=== PATIENT | male | born 1955 | race Caucasian/White ===

== ENCOUNTER 2017-01-13 12:54 | Emergency (ER) | payer BC ==
[2017-01-13] MEDS ORDERED: Sodium Chloride 0.9% 10 ML Syringe FLUSH PRN ×2 (15:13→16:03)
[2017-01-13] MEDS ORDERED: Sodium Chloride 0.9% 1,000 ML IV SCH (15:15)
--- NOTE | 2017-01-13 15:23 | EDM.PDOC ---
ED HPI GENERAL MEDICAL PROBLEM - General Chief Complaint: General Stated Complaint: LOW HEMOGLOBIN Time Seen by Provider: 01/13/17 15:23 Source of Information: Reports: Patient, Family History Limitations: Reports: No limitations - History of Present Illness INITIAL COMMENTS - FREE TEXT/NARRATIVE: PT WENT TO THE CLINIC TODAY BECAUSE HE WAS HAVING ABDOMANAL PAIN hE WAS FOUND TO HAVE A HG OF 6.8. hE HAS NOT HAD BLOODY STOOLS. Onset: gradual Duration: Hour(s): Location: Reports: abdomen Severity: moderate - Related Data Allergies Allergy/AdvReac Type Severity Reaction Status Date / Time No Known Allergies Allergy Verified 10/12/15 08:54 Home Meds: Home Meds Warfarin Sodium [Jantoven] 3.75 mg PO DAILY 10/11/15 [History] Calcium Polycarbophil [Fibercon] 1,250 mg PO DAILY 01/13/17 [History] Diphenoxylate HCl/Atropine [Diphenoxylate-Atrop 2.5-0.025] 1 tab PO TIDAC [History] Loperamide [Imodium] 2 mg PO BID PRN 01/13/17 [History] Magnesium Oxide 400 mg PO DAILY 01/13/17 [History] Pantoprazole [Protonix] 40 mg PO DAILY 01/13/17 [History] Phosphorus #1 [Neutra-Phos] 500 mg PO BID 01/13/17 [History] Sodium Bicarbonate 650 mg PO TID 01/13/17 [History] Tadalafil [Cialis] 5 mg PO DAILY 01/13/17 [History] Past Medical History HEENT History: Reports: Cataract Cardiovascular History: Reports: Blood clots/VTE/DVT Gastrointestinal History: Reports: Hemorrhoids, Other (see below) Other Gastrointestinal History: incisional hernia Musculoskeletal History: Reports: Arthritis, Back pain, chronic Endocrine/Metabolic History: Reports: Obesity/BMI 30+ Hematologic History: Reports: Anticoagulation therapy - Infectious Disease History Infectious Disease History: Reports: Chicken pox - Past Surgical History HEENT Surgical History: Reports: Cataract surgery GI Surgical History: Reports: Colonoscopy, Other (see below) Other GI Surgeries/Procedures: 18" of small bowel removed due to blood clot Neurological Surgical History: Reports: Other (see below) Other Neurological Surgeries/Procedures: 3 ruptured disc repair Musculoskeletal Surgical History: Reports: Shoulder surgery, Other (see below) Other Musculoskeletal Surgeries/Procedures:: rotator cuff repair Social & Family History - Family History Oncologic: Reports: Liver, Pancreatic, Prostate, Other (see below) Other Oncologic Family History: stomach - Tobacco Use Smoking Status *Q: Never Smoker Years of Tobacco use: 15 Packs/Tins Daily: 0 Used Tobacco, but Quit: Yes Month Tobacco Last Used: 0 Second Hand Smoke Exposure: No - Caffeine Use Caffeine Use: Reports: Coffee - Alcohol Use Days Per Week of Alcohol Use: 0 - Recreational Drug Use Recreational Drug Use: No ED ROS GENERAL - Review of Systems Review Of Systems: See Below Constitutional: Reports: no symptoms HEENT: Reports: No symptoms Respiratory: Reports: No Symptoms Cardiovascular: Reports: No symptoms Endocrine: Reports: no symptoms GI/Abdominal: Reports: Abdominal pain, Other ( HG OF 6.2. ) : Reports: no symptoms Musculoskeletal: Reports: no symptoms Skin: Reports: no symptoms Neurological: Reports: No Symptoms Psychiatric: Reports: No symptoms ED EXAM, GENERAL - Physical Exam Exam: See Below Free Text/Narrative:: PT ARRIVED WITH A HG OF 6.8. hE HAD HIS BLOOD CHECKED ABOUT 1 MONTH AGO AND IT WAS GOOD, Exam Limited By: No limitations General Appearance: alert, anxious Ears: normal TMs Nose: normal inspection Throat/Mouth: Normal inspection Head: atraumatic Neck: normal inspection Respiratory/Chest: no respiratory distress Cardiovascular: regular rate, rhythm GI/Abdominal: soft, non tender, other ( DIFFUSE TENDERNESS BUT NO GUARDING. ) (Male) Exam: Deferred Rectal (Males) Exam: Deferred Back Exam: normal inspection Extremities: normal inspection Neurological: alert, oriented, normal cognition Psychiatric: anxious Course - Vital Signs Last Recorded V/S: Last Vital Signs Temp 35.9 C 01/13/17 18:07 Pulse 57 L 01/13/17 18:07 Resp 16 01/13/17 18:07 BP 129/63 01/13/17 18:07 Pulse Ox 96 01/13/17 15:07 - Orders/Labs/Meds Orders: Active Orders 24 hr Category Date Time Status Abdomen Pelvis w Cont [CT] Stat Exams 01/13/17 15:58 Taken RED BLOOD CELLS LP [BBK] Stat Lab 01/13/17 14:40 Results TYPE AND SCREEN [BBK] Stat Lab 01/13/17 14:40 Results Iopamidol [Isovue-300 (61%)] Med 01/13/17 16:15 Active 150 ml IV . DIRECTED Sodium Chloride 0.9% [Normal Saline] 1,000 ml Med 01/13/17 15:15 Active IV ASDIRECTED Sodium Chloride 0.9% [Saline Flush] Med 01/13/17 15:13 Active 10 ml FLUSH ASDIRECTED PRN Sodium Chloride 0.9% [Saline Flush] Med 01/13/17 16:03 Active 10 ml FLUSH ONETIME PRN Saline Lock Insert [OM.PC] Routine Oth 01/13/17 15:13 Ordered Medication Orders Sodium Chloride (Normal Saline) 1,000 mls @ 200 mls/hr IV ASDIRECTED SHAYAN Last Admin: 01/13/17 16:55 Dose: 200 mls/hr Iopamidol (Isovue-300 (61%)) 150 ml IV . DIRECTED [facility] Last Admin: 01/13/17 16:38 Dose: 142 ml Sodium Chloride (Saline Flush) 10 ml FLUSH ASDIRECTED PRN PRN Reason: Keep Vein Open Last Admin: 01/13/17 16:55 Dose: 10 ml Sodium Chloride (Saline Flush) 10 ml FLUSH ONETIME PRN PRN Reason: PER RADIOLOGY PROTOCOL Last Admin: 01/13/17 16:37 Dose: 10 ml Labs: Laboratory Tests 01/13/17 01/13/17 01/13/17 Range/Units 14:32 14:33 14:40 WBC 5.9 (4.5-11.0) K/uL RBC 3.28 L (4.30-5.90) M/uL Hgb 6.2 L* D (12.0-15.0) g/dL Hct 22.4 L (40.0-54.0) % MCV 68 L (80-98) fL MCH 19 L (27-31) pg MCHC 28 L (32-36) % Plt Count 285 (150-400) K/uL Neut % (Auto) 62 (36-66) % Lymph % (Auto) 21 L (24-44) % [place] % (Auto) 14 H (2-6) % Eos % (Auto) 2 (2-4) % Baso % (Auto) 1 (0-1) % PT (9.5-12.0) sec INR (0.80-1.20) Sodium 144 (140-148) mmol/L Potassium 4.3 (3.6-5.2) mmol/L Chloride 109 H (100-108) mmol/L Carbon Dioxide 27 (21-32) mmol/L Anion Gap 12.3 (5.0-14.0) mmol/L BUN 25 H D (7-18) mg/dL Creatinine 1.2 (0.8-1.3) mg/dL Est Cr Clr Drug Dosing 63.01 mL/min Estimated GFR (MDRD) > 60 (>60) Glucose 82 (74-106) mg/dL Calcium 8.0 L (8.5-10.1) mg/dL Total Bilirubin 0.8 (0.2-1.0) mg/dL AST 24 (15-37) U/L ALT 32 (12-78) U/L Alkaline Phosphatase 64 (46-116) U/L Total Protein 6.9 (6.4-8.2) g/dL Albumin 3.2 L (3.4-5.0) g/dL Globulin 3.7 H (2.3-3.5) g/dL Albumin/Globulin Ratio 0.9 L (1.2-2.2) Urine Color Urine Appearance Urine pH (4.5-8.0) Ur Specific [place] (1.008-1.030) Urine Protein (NEGATIVE) mg/dL Urine Glucose (UA) (NEGATIVE) mg/dL Urine Ketones (NEGATIVE) mg/dL Urine Occult Blood (NEGATIVE) Urine Nitrite (NEGAITVE) Urine Bilirubin (NEGATIVE) Urine Urobilinogen (NORMAL) mg/dL Ur Leukocyte Esterase (NEGATIVE) Urine RBC (0-5) Urine WBC (0-5) Ur Epithelial Cells Amorphous Sediment Urine Bacteria Urine Mucus Blood Type O POSITIVE Gel Antibody Screen Negative Crossmatch See Detail 01/13/17 01/13/17 Range/Units 14:40 16:33 WBC (4.5-11.0) K/uL RBC (4.30-5.90) M/uL Hgb (12.0-15.0) g/dL Hct (40.0-54.0) % MCV (80-98) fL MCH (27-31) pg MCHC (32-36) % Plt Count (150-400) K/uL Neut % (Auto) (36-66) % Lymph % (Auto) (24-44) % [place] % (Auto) (2-6) % Eos % (Auto) (2-4) % Baso % (Auto) (0-1) % PT 19.4 H (9.5-12.0) sec INR 1.80 H (0.80-1.20) Sodium (140-148) mmol/L Potassium (3.6-5.2) mmol/L Chloride (100-108) mmol/L Carbon Dioxide (21-32) mmol/L Anion Gap (5.0-14.0) mmol/L BUN (7-18) mg/dL Creatinine (0.8-1.3) mg/dL Est Cr Clr Drug Dosing mL/min Estimated GFR (MDRD) (>60) Glucose (74-106) mg/dL Calcium (8.5-10.1) mg/dL Total Bilirubin (0.2-1.0) mg/dL AST (15-37) U/L ALT (12-78) U/L Alkaline Phosphatase (46-116) U/L Total Protein (6.4-8.2) g/dL Albumin (3.4-5.0) g/dL Globulin (2.3-3.5) g/dL Albumin/Globulin Ratio (1.2-2.2) Urine Color Yellow Urine Appearance Clear Urine pH 7.0 (4.5-8.0) Ur Specific [place] 1.010 (1.008-1.030) Urine Protein Negative (NEGATIVE) mg/dL Urine Glucose (UA) Normal (NEGATIVE) mg/dL Urine Ketones Negative (NEGATIVE) mg/dL Urine Occult Blood Negative (NEGATIVE) Urine Nitrite Negative (NEGAITVE) Urine Bilirubin Negative (NEGATIVE) Urine Urobilinogen Normal (NORMAL) mg/dL Ur Leukocyte Esterase Negative (NEGATIVE) Urine RBC 0-5 (0-5) Urine WBC 0-5 (0-5) Ur Epithelial Cells Few Amorphous Sediment Not seen Urine Bacteria Few Urine Mucus Few Blood Type Gel Antibody Screen Crossmatch Meds: Medications Generic Name Dose Route Start Last Admin Trade Name Freq PRN Reason Stop Dose Admin Sodium Chloride 1,000 mls @ 200 mls/hr 01/13/17 15:15 01/13/17 16:55 Normal Saline IV 200 mls/hr ASDIRECTED SHAYAN Administration Iopamidol 150 ml 01/13/17 16:15 01/13/17 16:38 Isovue-300 (61%) IV 142 ml . DIRECTED SHAYAN Administration Sodium Chloride 10 ml 01/13/17 15:13 01/13/17 16:55 Saline Flush FLUSH 10 ml ASDIRECTED PRN Administration Keep Vein Open Sodium Chloride 10 ml 01/13/17 16:03 01/13/17 16:37 Saline Flush FLUSH 10 ml ONETIME PRN Administration PER RADIOLOGY PROTOCOL Discontinued Medications Generic Name Dose Route Start Last Admin Trade Name Magdi PRN Reason Stop Dose Admin Sodium Chloride 84 mls @ 3 mls/sec 01/13/17 16:03 01/13/17 16:37 Normal Saline IV 01/13/17 16:04 3 mls/sec ONETIME ONE Administration - Re-Assessments/Exams Free Text/Narrative Re-Assessment/Exam: 01/13/17 18:43 PT HAD A HG OF 6.2. HIS CHEMS WERE OK. hE HAD A CAT SCAN WHICH SHOWED THICKENING OF THE WALL AT THE ANASTOMOSIS. tHIS COULD BE A TUMOR. hE HAS HAD 1 UNIT OF BLOOD AND A SECOND WILL BE HUNG FOR TRANSFER. 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 hANG SECOND UNIT OF BLOOD AND GIVE DURING TRANSPORT. - My Orders Last 24 Hours: My Active Orders 01/13/17 14:40 RED BLOOD CELLS LP [BBK] Stat TYPE AND SCREEN [BBK] Stat 01/13/17 15:13 Sodium Chloride 0.9% [Saline Flush] 10 ml FLUSH ASDIRECTED PRN Saline Lock Insert [OM.PC] Routine 01/13/17 15:15 Sodium Chloride 0.9% [Normal Saline] 1,000 ml IV ASDIRECTED 01/13/17 15:58 Abdomen Pelvis w Cont [CT] Stat 01/13/17 16:03 Sodium Chloride 0.9% [Saline Flush] 10 ml FLUSH ONETIME PRN 01/13/17 16:15 Iopamidol [Isovue-300 (61%)] 150 ml IV . DIRECTED - Assessment/Plan Last 24 Hours: My Active Orders 01/13/17 14:40 RED BLOOD CELLS LP [BBK] Stat TYPE AND SCREEN [BBK] Stat 01/13/17 15:13 Sodium Chloride 0.9% [Saline Flush] 10 ml FLUSH ASDIRECTED PRN Saline Lock Insert [OM.PC] Routine 01/13/17 15:15 Sodium Chloride 0.9% [Normal Saline] 1,000 ml IV ASDIRECTED 01/13/17 15:58 Abdomen Pelvis w Cont [CT] Stat 01/13/17 16:03 Sodium Chloride 0.9% [Saline Flush] 10 ml FLUSH ONETIME PRN 01/13/17 16:15 Iopamidol [Isovue-300 (61%)] 150 ml IV . DIRECTED
[2017-01-13] MEDS ORDERED: Iopamidol 612 MG/ML 150 ML Bottle IV SCH (16:15)
[2017-01-13 18:44] VITALS: BP 122/53
[2017-01-13] MEDS ORDERED: Phytonadione ORAL 5mg/5ml Soln Simple Syrup U/D PO ONE (18:48)
== END 2017-01-13 19:29 ==
LOC: JP.ED 12:54
DX: D64.9 Anemia, unspecified (principal); K92.2 Gastrointestinal hemorrhage, unspecified; T81.71 Complication of artery following a procedure, not elsewhere classified; E66.9 Obesity, unspecified; Z68.29 Body mass index [BMI] 29.0-29.9, adult; Z86.718 Personal history of other venous thrombosis and embolism; Z79.899 Other long term (current) drug therapy; Z98.49 Cataract extraction status, unspecified eye; Z98.890 Other specified postprocedural states; Z79.01 Long term (current) use of anticoagulants
CPT/HCPCS: 36415; 36430; 74177; 80053; 81001; 82272; 85025; 85610; 86850; 86900; 86901; 86920; 86922; 96360; 96361; 99285; A9270; J7030; J7040; J7050; P9016

== ENCOUNTER 2017-08-13 22:03 | Emergency (ER) | payer BC ==
[2017-08-13] MEDS ORDERED: Sodium Chloride 0.9% 10 ML Syringe FLUSH PRN (23:08)
[2017-08-13] MEDS ORDERED: HYDROmorphone 1 MG/ML Syringe IVPUSH ONE (23:09)
--- NOTE | 2017-08-13 23:13 | EDM.PDOC ---
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 He states his pain has progressively gotten worse from his last evaluation he has had loose watery stools is passing gas no nausea or vomiting Right Upper Abdominal Pain Score (Numeric/FACES): 6 - Related Data Allergies Allergy/AdvReac Type Severity Reaction Status Date / Time No Known Allergies Allergy Verified 08/13/17 23:04 Home Meds: Home Meds Warfarin Sodium [Jantoven] 2.5 mg PO ASDIRECTED 10/11/15 [History] Calcium Polycarbophil [Fibercon] 1,250 mg PO DAILY 01/13/17 [History] Diphenoxylate HCl/Atropine [Diphenoxylate-Atrop 2.5-0.025] 1 tab PO TIDAC [History] Loperamide [Imodium] 2 mg PO BID PRN 01/13/17 [History] Magnesium Oxide 800 mg PO DAILY 01/13/17 [History] Pantoprazole [Protonix] 40 mg PO DAILY 01/13/17 [History] Phosphorus #1 [Neutra-Phos] 500 mg PO BID 01/13/17 [History] Sodium Bicarbonate 650 mg PO TID 01/13/17 [History] Amylase/Lipase/Protease [[place] 24,000 Unit] 1 each PO DAILY 04/04/17 [History ] Cyanocobalamin (Vitamin B12) [Vitamin B12] 2 tab PO DAILY 04/04/17 [History] Folic Acid 1 mg PO BID 04/04/17 [History] Lactobacillus Acidophilus [Probiotic Acidophilus] 1 each PO DAILY 04/04/17 [ History] Tamsulosin [Tamsulosin 24 Hr] 0.4 mg PO DAILY 04/04/17 [History] Past Medical History HEENT History: Reports: Cataract Cardiovascular History: Reports: Blood Clots/VTE/DVT Gastrointestinal History: Reports: Hemorrhoids, Other (See Below) Other Gastrointestinal History: incisional hernia Musculoskeletal History: Reports: Arthritis, Back Pain, Chronic Endocrine/Metabolic History: Reports: Obesity/BMI 30+ Hematologic History: Reports: Anticoagulation Therapy, B12 Deficiency, Folic Acid, Iron Deficiency - Infectious Disease History Infectious Disease History: Reports: Measles - Past Surgical History HEENT Surgical History: Reports: Cataract Surgery GI Surgical History: Reports: Colonoscopy, Hernia, Abdominal, Lysis of Adhesions , Small Bowel, Other (See Below) Neurological Surgical History: Reports: Other (See Below) Musculoskeletal Surgical History: Reports: Shoulder Surgery, Other (See Below) Social & Family History - Family History Oncologic: Reports: Liver, Pancreatic, Prostate, Other (See Below) Other Oncologic Family History: stomach - Tobacco Use Smoking Status *Q: Never Smoker Years of Tobacco use: 15 Packs/Tins Daily: 0 Used Tobacco, but Quit: Yes Month Tobacco Last Used: 0 Second Hand Smoke Exposure: No - Caffeine Use Caffeine Use: Reports: None - Alcohol Use Days Per Week of Alcohol Use: 0 - Recreational Drug Use Recreational Drug Use: No ED ROS GENERAL - Review of Systems Review Of Systems: See Below Constitutional: Denies: Fever, Chills HEENT: Reports: No Symptoms Respiratory: Reports: No Symptoms Cardiovascular: Reports: No Symptoms GI/Abdominal: Reports: Abdominal Pain, Diarrhea, Flatus. Denies: Nausea, Vomiting : Reports: No Symptoms Musculoskeletal: Reports: No Symptoms Skin: Reports: No Symptoms Neurological: Reports: No Symptoms ED EXAM, GI/ABD - Physical Exam Exam: See Below Text/Narrative:: General: Male, moderate discomfort secondary to pain, alert and oriented x3 HEENT: head is atraumatic normocephalic, eyes pupils equal round reactive to light, sclera clear no conjunctivitis appreciated. Ears deferred. Nose no septal deviation, nares are clear, no blood present. Mouth mucosa is moist and pink no erythema or exudate noted in soft palate, tongue is midline uvula is midline, dentures in place. Neck: Supple no thyromegaly no tracheal deviation. Nodes: Cervical nodes subclavicular nodes nontender no palpable lymphadenopathy noted. Lungs: clear to auscultation bilaterally with symmetrical respirations, no adventitious noise appreciated. CV: Regular rate and rhythm S1 and S2 appreciated no murmurs rubs or gallops noted. Abdomen: Soft, tender to palpation right lower quadrant, no palpable masses or organomegaly appreciated, no distention positive for guarding bowel sounds are present, midline laparotomy scar clean dry and intact. Neuro: Cranial nerves II through XII grossly intact Skin: Warm and dry, intact Extremities: No lower extremity edema appreciated, pedal pulse is +2. Course - Vital Signs Last Recorded V/S: Last Vital Signs Temp 99.5 F 08/14/17 01:10 Pulse 52 L 08/14/17 01:10 Resp 15 08/14/17 01:10 BP 188/80 H 08/14/17 01:10 Pulse Ox 95 08/14/17 01:10 - Orders/Labs/Meds Orders: Active Orders 24 hr Category Date Time Status Peripheral IV Care [RC] . DIRECTED Care 08/13/17 23:08 Active Abdomen Ltd [US] Stat Exams 08/14/17 01:38 Taken Abdomen Pelvis w Cont [CT] Urgent Exams 08/14/17 00:01 Taken CLOSTRIDIUM DIFFICILE BY PCR [] Stat Lab 08/13/17 22:32 Uncollected Lactated Ringers [Ringers, Lactated] 1,000 ml Med 08/13/17 23:15 Active IV ASDIRECTED Piperacillin/Tazobactam [Zosyn] 3.375 gm Med 08/14/17 01:45 Active Sodium Chloride 0.9% [Normal Saline] 50 ml IV Q6H Sodium Chloride 0.9% [Saline Flush] Med 08/13/17 23:08 Active 10 ml FLUSH ASDIRECTED PRN Peripheral IV Insertion Adult [OM.PC] Urgent Oth 08/13/17 23:08 Ordered Medication Orders Lactated Ringer's (Ringers, Lactated) 1,000 mls @ 500 mls/hr IV ASDIRECTED SHAYAN Last Admin: 08/13/17 23:37 Dose: 500 mls/hr Piperacillin Sod/Tazobactam (Sod 3.375 gm/ Sodium Chloride) 50 mls @ 100 mls/ hr IV Q6H SHAYAN Last Admin: 08/14/17 01:57 Dose: 100 mls/hr Sodium Chloride (Saline Flush) 10 ml FLUSH ASDIRECTED PRN PRN Reason: Keep Vein Open Labs: Laboratory Tests 10/18/17 10/18/17 10/18/17 Range/Units 23:22 23:22 23:22 WBC 12.2 H (4.5-11.0) K/uL RBC 5.29 (4.30-5.90) M/uL Hgb 13.8 D (12.0-15.0) g/dL Hct 43.3 (40.0-54.0) % MCV 82 (80-98) fL MCH 26 L (27-31) pg MCHC 32 (32-36) % Plt Count 226 (150-400) K/uL Neut % (Auto) 81 H (36-66) % Lymph % (Auto) 10 L (24-44) % [place] % (Auto) 9 H (2-6) % Eos % (Auto) 0 L (2-4) % Baso % (Auto) 0 (0-1) % PT 28.1 H (9.5-12.0) sec INR 2.53 H (0.80-1.20) Sodium 141 (140-148) mmol/L Potassium 4.0 (3.6-5.2) mmol/L Chloride 107 (100-108) mmol/L Carbon Dioxide 27 (21-32) mmol/L Anion Gap 6.7 (5.0-14.0) mmol/L BUN 17 (7-18) mg/dL Creatinine 1.3 (0.8-1.3) mg/dL Est Cr Clr Drug Dosing 57.41 mL/min Estimated GFR (MDRD) 56 L (>60) Glucose 91 (74-106) mg/dL Lactic Acid (0.4-2.0) mmol/L Calcium 8.6 (8.5-10.1) mg/dL Total Bilirubin 1.6 H D (0.2-1.0) mg/dL AST 31 (15-37) U/L ALT 48 (12-78) U/L Alkaline Phosphatase 132 H D (46-116) U/L Total Protein 7.3 (6.4-8.2) g/dL Albumin 3.6 (3.4-5.0) g/dL Globulin 3.7 H (2.3-3.5) g/dL Albumin/Globulin Ratio 1.0 L (1.2-2.2) Lipase 138 (73-393) U/L Urine Color Urine Appearance Urine pH (4.5-8.0) Ur Specific [place] (1.008-1.030) Urine Protein (NEGATIVE) mg/dL Urine Glucose (UA) (NEGATIVE) mg/dL Urine Ketones (NEGATIVE) mg/dL Urine Occult Blood (NEGATIVE) Urine Nitrite (NEGAITVE) Urine Bilirubin (NEGATIVE) Urine Urobilinogen (NORMAL) mg/dL Ur Leukocyte Esterase (NEGATIVE) Urine RBC (0-5) Urine WBC (0-5) Ur Epithelial Cells Amorphous Sediment Urine Bacteria Urine Mucus 08/13/17 08/14/17 Range/Units 23:22 02:29 WBC (4.5-11.0) K/uL RBC (4.30-5.90) M/uL Hgb (12.0-15.0) g/dL Hct (40.0-54.0) % MCV (80-98) fL MCH (27-31) pg MCHC (32-36) % Plt Count (150-400) K/uL Neut % (Auto) (36-66) % Lymph % (Auto) (24-44) % [place] % (Auto) (2-6) % Eos % (Auto) (2-4) % Baso % (Auto) (0-1) % PT (9.5-12.0) sec INR (0.80-1.20) Sodium (140-148) mmol/L Potassium (3.6-5.2) mmol/L Chloride (100-108) mmol/L Carbon Dioxide (21-32) mmol/L Anion Gap (5.0-14.0) mmol/L BUN (7-18) mg/dL Creatinine (0.8-1.3) mg/dL Est Cr Clr Drug Dosing mL/min Estimated GFR (MDRD) (>60) Glucose (74-106) mg/dL Lactic Acid 1.4 (0.4-2.0) mmol/L Calcium (8.5-10.1) mg/dL Total Bilirubin (0.2-1.0) mg/dL AST (15-37) U/L ALT (12-78) U/L Alkaline Phosphatase (46-116) U/L Total Protein (6.4-8.2) g/dL Albumin (3.4-5.0) g/dL Globulin (2.3-3.5) g/dL Albumin/Globulin Ratio (1.2-2.2) Lipase (73-393) U/L Urine Color Yellow Urine Appearance Clear Urine pH 5.0 (4.5-8.0) Ur Specific [place] 1.010 (1.008-1.030) Urine Protein Trace (NEGATIVE) mg/dL Urine Glucose (UA) Normal (NEGATIVE) mg/dL Urine Ketones Negative (NEGATIVE) mg/dL Urine Occult Blood Moderate (NEGATIVE) Urine Nitrite Negative (NEGAITVE) Urine Bilirubin Negative (NEGATIVE) Urine Urobilinogen Normal (NORMAL) mg/dL Ur Leukocyte Esterase Negative (NEGATIVE) Urine RBC 0-5 (0-5) Urine WBC 0-5 (0-5) Ur Epithelial Cells Not seen Amorphous Sediment Not seen Urine Bacteria Not seen Urine Mucus Not seen Meds: Medications Generic Name Dose Route Start Last Admin Trade Name Freq PRN Reason Stop Dose Admin Lactated Ringer's 1,000 mls @ 500 mls/hr 08/13/17 23:15 08/13/17 23:37 Ringers, Lactated IV 500 mls/hr ASDIRECTED SHAYAN Administration Piperacillin Sod/Tazobactam 50 mls @ 100 mls/hr 08/14/17 01:45 08/14/17 01:57 Sod 3.375 gm/ Sodium Chloride IV 100 mls/hr Q6H SHAYAN Administration Sodium Chloride 10 ml 08/13/17 23:08 Saline Flush FLUSH ASDIRECTED PRN Keep Vein Open Discontinued Medications Generic Name Dose Route Start Last Admin Trade Name Freq PRN Reason Stop Dose Admin Hydromorphone HCl 1 mg 08/13/17 23:09 08/13/17 23:38 Dilaudid IVPUSH 08/13/17 23:10 1 mg ONETIME ONE Administration Hydromorphone HCl 1 mg 08/14/17 01:24 08/14/17 01:56 Dilaudid IVPUSH 08/14/17 01:25 1 mg ONETIME ONE Administration Hydromorphone HCl 1 mg 08/14/17 03:34 Dilaudid IVPUSH 08/14/17 03:35 ONETIME ONE Sodium Chloride 78 mls @ 3.8 mls/sec 08/14/17 00:06 08/14/17 00:17 Normal Saline IV 08/14/17 00:07 3.8 mls/sec ASDIRECTED STA Administration Iopamidol 126 ml 08/14/17 00:05 08/14/17 00:17 Isovue-300 (61%) IV 08/14/17 00:06 150 ml . DIRECTED STA Administration Ondansetron HCl 4 mg 08/13/17 23:29 08/13/17 23:39 Zofran IVPUSH 08/13/17 23:30 4 mg ONETIME ONE Administration Departure - Departure Time of Disposition: 03:45 Disposition: DC/Tfer to Acute Hospital 02 Condition: Good Clinical Impression: Cholecystitis - Discharge Information Referrals: Eddie Tellez MD [Primary Care Provider] - Forms: ED Department Discharge - My Orders Last 24 Hours: My Active Orders 08/13/17 22:32 CLOSTRIDIUM DIFFICILE BY PCR [RM] Stat 08/13/17 23:08 Peripheral IV Care [RC] . DIRECTED Sodium Chloride 0.9% [Saline Flush] 10 ml FLUSH ASDIRECTED PRN Peripheral IV Insertion Adult [OM.PC] Urgent 08/13/17 23:15 Lactated Ringers [Ringers, Lactated] 1,000 ml IV ASDIRECTED 08/14/17 00:01 Abdomen Pelvis w Cont [CT] Urgent 08/14/17 01:38 Abdomen Ltd [US] Stat 08/14/17 01:45 Piperacillin/Tazobactam [Zosyn] 3.375 gm Sodium Chloride 0.9% [Normal Saline] 50 ml IV Q6H - Assessment/Plan Last 24 Hours: My Active Orders 08/13/17 22:32 CLOSTRIDIUM DIFFICILE BY PCR [RM] Stat 08/13/17 23:08 Peripheral IV Care [RC] . 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 Recommend right upper quadrant ultrasound for further evaluation. 2. Large amount of stool within the colon. Correlate with symptoms of constipation. IMPRESSION: US Solitary gallstone at the gallbladder neck with minimal gallbladder wall thickening. No pericholecystic fluid. Normal common bile duct. Findings equivocal for cholecystitis. Plan Called and discussed the case with Dr. Blanco general surgeon [facility] kindly accepted the patient in transport he was given 1 dose of Zosyn prior to departure total of 3 mg Dilaudid for pain control he will be transported via EMS ground Patient was in agreement with the plan all questions were answered, they were instructed to return to the emergency department or call for worsening symptoms. This note was dictated using [employer] voice recognition software please call with any questions.
[2017-08-13] MEDS ORDERED: Lactated Ringers 1,000 ML IV SCH (23:15)
[2017-08-13] MEDS ORDERED: Ondansetron 4 MG/2 ML SDV IVPUSH ONE (23:29)
[2017-08-14] MEDS ORDERED: Iopamidol 612 MG/ML 150 ML Bottle IV STA (00:05)
[2017-08-14] MEDS ORDERED: HYDROmorphone 1 MG/ML Syringe IVPUSH ONE ×3 (01:24→05:23)
[2017-08-14] MEDS ORDERED: Piperacillin/Tazobactam 3.375 GM in Sodium Chloride 0.9% 50 ML IV SCH (01:45)
[2017-08-14 04:09] VITALS: BP 161/74
== END 2017-08-14 05:33 ==
LOC: JP.ED 22:03
DX: K81.9 Cholecystitis, unspecified (principal); E66.9 Obesity, unspecified; Z79.01 Long term (current) use of anticoagulants; Z79.899 Other long term (current) drug therapy
CPT/HCPCS: 36415; 74177; 76705; 80053; 81001; 83605; 83690; 85025; 85610; 96361; 96365; 96375; 96376; 99285; J1170; J2405; J2543; J7030; J7050; J7120

== ENCOUNTER 2017-11-18 07:28 | Day surgery (SDC) | payer BC ==
[~2017-11-18 07:28] MED LIST: Bupivacaine 0.5% 50 ML MDV ONE; Lidocaine 0.5% 50 ML SDV ONE; Midazolam 1 MG/ML 2 ML SDV ONE; Povidone-Iodine 10% Soln 118.25 ML Bottle ONE; Propofol 200 MG/20 ML SDV ONE; fentaNYL 100 MCG/2 ML SDV ONE
[2017-11-18] MEDS ORDERED: Lactated Ringers 1,000 ML IV SCH (08:00)
[2017-11-18] MEDS ORDERED: ceFAZolin 2 GM in Premix Bag 1 BAG IV ONE (09:00)
[2017-11-18] MEDS ORDERED: traMADol 50 MG Tab PO PRN ×2 (10:54→11:24)
[2017-11-18 11:30] VITALS: BP 142/71
--- NOTE | 2017-11-18 12:00 | OR ---
DATE OF PROCEDURE: 11/18/2017 PREOPERATIVE DIAGNOSIS: Left wrist ganglion cyst. POSTOPERATIVE DIAGNOSIS: Left wrist ganglion cyst. PROCEDURE: Left wrist ganglion cyst excision. ASSOCIATE FIELD SERVICE ENGINEER: Aissatou Hooper NP. Physician front end assistant, Aissatou Hooper NP, played an essential role in assisting in this case, helping to position the patient, retract structures as needed, as well as suturing and cutting sutures as indicated. Her presence improved patient's safety and decreased operative time. ANESTHESIA: Nigel block plus conscious sedation. FLUID: Lactated Ringer solution. ESTIMATED BLOOD LOSS: Less than 10 mL. COMPLICATIONS: None. SPECIMEN: None. DISCHARGE DISPOSITION: Stable to PACU. HISTORY AND INDICATION FOR THE PROCEDURE: The patient was seen in the clinic preoperatively. He had a ganglion cyst for sometime. It originally did not irritate him, but was irritating him more everyday. He was very active and uses a Bobcat as well as cuts wood for heating. Risks and benefits of the procedure were explained to the patient and informed consent was obtained. DETAILS OF PROCEDURE: The patient was seen preoperatively by myself and the Anesthesia staff in the preoperative holding area where the operative site was marked. He was brought to the operative suite by Anesthesia staff, where Nigel block was administered plus conscious sedation. The left upper extremity was then prepped and draped in a sterile manner. Time- out was called identifying the correct patient, the correct procedure, the correct site, and antibiotics had begun within an appropriate period of time. An incision was made longitudinally over the ulnar aspect of the wrist over the area of the ganglion cyst and carried down to the fascia. I then used self-retaining retractors, then used tenotomies to delineate the cyst. The cyst was ruptured, so I used a snap to hold it and then eventually a Malou after I had released more soft tissue around it. The cyst had a very deep stalk extending into the radiocarpal joint, definitely passed the ulnocarpal joint. I carried this down to the stalk and then roughed up the area around the base as much as I could. I then used bipolar electrocautery to control some bleeding. We then closed with 2-0 Vicryl and 3-0 nylon followed by Betadine- soaked Adaptic followed by sterile dressing. The patient had the Nigel block let down by Anesthesia and then was taken to the PACU in stable condition. Ab Blake DO /[id number]
== END 2017-11-18 11:43 | disposition home or self-care (01) ==
LOC: JP.SDS 07:28
PROVIDERS: ATTEND Orthopaedic Surgery
DX: M67.432 Ganglion, left wrist (principal); M25.512 Pain in left shoulder; E66.9 Obesity, unspecified; Z79.01 Long term (current) use of anticoagulants; Z79.899 Other long term (current) drug therapy; Z68.30 Body mass index [BMI] 30.0-30.9, adult
CPT/HCPCS: 25111; A9270; J0690; J2250; J2704; J3010; J7120; 88304

== ENCOUNTER 2019-01-28 16:07 | Emergency (ER) | payer MEDICARE, BC ==
[2019-01-28] MEDS ORDERED: Sodium Chloride 0.9% 1,000 ML IV SCH (17:30)
--- NOTE | 2019-01-28 17:48 | EDM.PDOC ---
<Sylvia Lea - Last Filed: 01/28/19 18:22> ED HPI GENERAL MEDICAL PROBLEM - General Chief Complaint: Syncope Stated Complaint: MEDICAL VIA [facility] Time Seen by Provider: 01/28/19 17:47 Source of Information: Reports: Patient History Limitations: Reports: No Limitations - History of Present Illness INITIAL COMMENTS - FREE TEXT/NARRATIVE: pt passed out in the bath tub today. He was slow to come around. HE HAS DONE THIS SEVERAL TIMES IN THE PAST WHEN HIS SERUM FERRITIN IS LOW. HE DOES GET FE INFUSIONS FROM TIME TO TIME. tHIS UUALLY OCCURS EVERY 2 MONTHES . hIS FERRITIN LEVEL IS DOWN TO 24. Y Onset: Today, Sudden Duration: Hour(s): Location: Reports: Head, Generalized Associated Symptoms: Reports: Syncope, Weakness - Related Data Allergies Allergy/AdvReac Type Severity Reaction Status Date / Time No Known Allergies Allergy Verified 01/28/19 16:15 Home Meds: Home Meds Warfarin Sodium [Jantoven] 2.5 mg PO ASDIRECTED 10/11/15 [History] Magnesium Oxide 400 mg PO DAILY 01/13/17 [History] Pantoprazole [Protonix] 40 mg PO DAILY 01/13/17 [History] Cyanocobalamin (Vitamin B12) [Vitamin B12] 2 tab PO DAILY 04/04/17 [History] Folic Acid 1 mg PO BID 04/04/17 [History] Lactobacillus Acidophilus [Probiotic Acidophilus] 1 each PO DAILY 04/04/17 [ History] Tamsulosin [Tamsulosin 24 Hr] 0.4 mg PO DAILY 04/04/17 [History] Amylase/Lipase/Protease [Marin DR 24,000 Unit] 1 tab PO DAILY 01/28/19 [History] Past Medical History HEENT History: Reports: Cataract Cardiovascular History: Reports: Blood Clots/VTE/DVT Gastrointestinal History: Reports: Chronic Diarrhea, Hemorrhoids, PUD, Other ( See Below) Other Gastrointestinal History: incisional hernia Musculoskeletal History: Reports: Arthritis, Back Pain, Chronic, Other (See Below) Other Musculoskeletal History: cyst lt wrist, left shoulder pain Neurological History: Reports: Concussion Endocrine/Metabolic History: Reports: Obesity/BMI 30+ Hematologic History: Reports: Anemia, Anticoagulation Therapy, B12 Deficiency, Blood Transfusion(s), Folic Acid, Iron Deficiency - Infectious Disease History Infectious Disease History: Reports: Chicken Pox, Measles Other Infectious Disease History: unknown - Past Surgical History HEENT Surgical History: Reports: Cataract Surgery Cardiovascular Surgical History: Reports: None GI Surgical History: Reports: Cholecystectomy, Colonoscopy, Hernia, Abdominal, Lysis of Adhesions, Small Bowel, Other (See Below) Other GI Surgeries/Procedures: bleeding ulcer-clips placed. bowel resection r/ t blood clot; bowel resection r/t adhesions; bowel resection r/t feces in BRAXTON tubes Neurological Surgical History: Reports: Discectomy, Other (See Below) Musculoskeletal Surgical History: Reports: Shoulder Surgery, Other (See Below) Dermatological Surgical History: Reports: None Social & Family History - Family History Oncologic: Reports: Liver, Pancreatic, Prostate, Other (See Below) Other Oncologic Family History: stomach - Tobacco Use Smoking Status *Q: Former Smoker Years of Tobacco use: 10 Used Tobacco, but Quit: Yes Month/Year Tobacco Last Used: - Caffeine Use Caffeine Use: Reports: Coffee - Recreational Drug Use Recreational Drug Use: No ED ROS GENERAL - Review of Systems Review Of Systems: See Below Constitutional: Reports: No Symptoms HEENT: Reports: No Symptoms Respiratory: Reports: No Symptoms Cardiovascular: Reports: Blood Pressure Problem, Other (PT HAS NOT PUT IN ADEQUATE FLUIDS TODAYU. ) Endocrine: Reports: No Symptoms GI/Abdominal: Reports: No Symptoms, Other (pT DOES HAVE A SHORT gi TRACT AND HE DOES NOT HAVE THE ABILITY TO ABSORB IRON IN DID IN THE PAST. ) : Reports: No Symptoms Musculoskeletal: Reports: No Symptoms Skin: Reports: No Symptoms ED EXAM, GENERAL - Physical Exam Exam: See Below Free Text/Narrative:: PT HAD AN EPISODE OF SYNCOPE IN THE TUB TODAY. hE DOES THIS WHEN HIS SERUM FERRITIN IS LOW. hE ALSO HAD A POOR INTAKE TODAY FLUID CONNORS. Exam Limited By: No Limitations General Appearance: Alert, No Apparent Distress, Other (PUPILS ARE EQUAL AND REACTIVE) Ears: Normal TMs Nose: Normal Inspection Throat/Mouth: Normal Inspection Head: Atraumatic Neck: Normal Inspection Respiratory/Chest: No Respiratory Distress Cardiovascular: Regular Rate, Rhythm GI/Abdominal: Soft, Non-Tender Rectal (Males) Exam: Deferred Back Exam: Normal Inspection Extremities: Normal Inspection Neurological: Alert, Oriented, Normal Cognition Psychiatric: Normal Affect Course - Vital Signs Last Recorded V/S: Last Vital Signs Temp 36.6 C 01/28/19 17:53 Pulse 61 01/28/19 19:47 Resp 16 01/28/19 16:30 BP 157/64 H 01/28/19 19:47 Pulse Ox 92 L 01/28/19 19:47 - Orders/Labs/Meds Orders: Active Orders 24 hr Category Date Time Status Cardiac Monitoring [RC] .As Directed Care 01/28/19 16:28 Active EKG Documentation Completion [RC] ASDIRECTED Care 01/28/19 16:28 Active Sodium Chloride 0.9% [Normal Saline] 1,000 ml Med 01/28/19 17:30 Active IV ASDIRECTED EKG 12 Lead [EK] Routine Ther 01/28/19 16:28 Ordered Medication Orders Sodium Chloride (Normal Saline) 1,000 mls @ 999 mls/hr IV ASDIRECTED SHAYAN Last Admin: 01/28/19 17:51 Dose: 999 mls/hr Labs: Laboratory Tests 01/28/19 01/28/19 01/28/19 Range/Units 16:27 16:27 16:30 WBC 7.4 (4.5-11.0) K/uL RBC 4.82 (4.30-5.90) M/uL Hgb 14.0 (12.0-15.0) g/dL Hct 46.3 (40.0-54.0) % MCV 96 (80-98) fL MCH 29 (27-31) pg MCHC 30 L (32-36) % Plt Count 248 (150-400) K/uL Neut % (Auto) 78 H (36-66) % Lymph % (Auto) 12 L (24-44) % [place] % (Auto) 8 H (2-6) % Eos % (Auto) 1 L (2-4) % Baso % (Auto) 0 (0-1) % PT 24.8 H (9.5-12.0) sec INR 2.37 H (0.80-1.20) Sodium 144 (140-148) mmol/L Potassium 4.2 (3.6-5.2) mmol/L Chloride 108 (100-108) mmol/L Carbon Dioxide 27 (21-32) mmol/L Anion Gap 9.3 (5.0-14.0) mmol/L BUN 30 H (7-18) mg/dL Creatinine 1.2 (0.8-1.3) mg/dL Est Cr Clr Drug Dosing 61.37 mL/min Estimated GFR (MDRD) > 60 (>60) Glucose 113 H (74-106) mg/dL Calcium 8.6 (8.5-10.1) mg/dL Iron (65-175) ug/dL TIBC (250-450) ug/dl % Saturation (20-55) % Ferritin (8-388) ng/ml Total Bilirubin 1.1 H (0.2-1.0) mg/dL AST 23 (15-37) U/L ALT 37 (12-78) U/L Alkaline Phosphatase 115 (46-116) U/L Total Protein 6.8 (6.4-8.2) g/dL Albumin 3.4 (3.4-5.0) g/dL Globulin 3.4 (2.3-3.5) g/dL Albumin/Globulin Ratio 1.0 L (1.2-2.2) Urine Color Urine Appearance Urine pH (4.5-8.0) Ur Specific [place] (1.008-1.030) Urine Protein (NEGATIVE) mg/dL Urine Glucose (UA) (NEGATIVE) mg/dL Urine Ketones (NEGATIVE) mg/dL Urine Occult Blood (NEGATIVE) Urine Nitrite (NEGAITVE) Urine Bilirubin (NEGATIVE) Urine Urobilinogen (NORMAL) mg/dL Ur Leukocyte Esterase (NEGATIVE) Urine RBC (0-5) Urine WBC (0-5) Ur Epithelial Cells Amorphous Sediment Urine Bacteria Urine Mucus 01/28/19 01/28/19 01/28/19 Range/Units 16:30 16:35 17:25 WBC (4.5-11.0) K/uL RBC (4.30-5.90) M/uL Hgb (12.0-15.0) g/dL Hct (40.0-54.0) % MCV (80-98) fL MCH (27-31) pg MCHC (32-36) % Plt Count (150-400) K/uL Neut % (Auto) (36-66) % Lymph % (Auto) (24-44) % [place] % (Auto) (2-6) % Eos % (Auto) (2-4) % Baso % (Auto) (0-1) % PT (9.5-12.0) sec INR (0.80-1.20) Sodium (140-148) mmol/L Potassium (3.6-5.2) mmol/L Chloride (100-108) mmol/L Carbon Dioxide (21-32) mmol/L Anion Gap (5.0-14.0) mmol/L BUN (7-18) mg/dL Creatinine (0.8-1.3) mg/dL Est Cr Clr Drug Dosing mL/min Estimated GFR (MDRD) (>60) Glucose (74-106) mg/dL Calcium (8.5-10.1) mg/dL Iron 38 L (65-175) ug/dL TIBC 349 (250-450) ug/dl % Saturation 11 L (20-55) % Ferritin 24 (8-388) ng/ml Total Bilirubin (0.2-1.0) mg/dL AST (15-37) U/L ALT (12-78) U/L Alkaline Phosphatase (46-116) U/L Total Protein (6.4-8.2) g/dL Albumin (3.4-5.0) g/dL Globulin (2.3-3.5) g/dL Albumin/Globulin Ratio (1.2-2.2) Urine Color Yellow Urine Appearance Clear Urine pH 5.0 (4.5-8.0) Ur Specific [place] 1.020 (1.008-1.030) Urine Protein Trace (NEGATIVE) mg/dL Urine Glucose (UA) Normal (NEGATIVE) mg/dL Urine Ketones Negative (NEGATIVE) mg/dL Urine Occult Blood Moderate (NEGATIVE) Urine Nitrite Negative (NEGAITVE) Urine Bilirubin Small (NEGATIVE) Urine Urobilinogen Normal (NORMAL) mg/dL Ur Leukocyte Esterase Negative (NEGATIVE) Urine RBC 0-5 (0-5) Urine WBC 0-5 (0-5) Ur Epithelial Cells Few Amorphous Sediment Not seen Urine Bacteria Not seen Urine Mucus Rare Meds: Medications Generic Name Dose Route Start Last Admin Trade Name Freq PRN Reason Stop Dose Admin Sodium Chloride 1,000 mls @ 999 mls/hr 01/28/19 17:30 01/28/19 17:51 Normal Saline IV 999 mls/hr ASDIRECTED SHAYAN Administration Discontinued Medications Generic Name Dose Route Start Last Admin Trade Name Freq PRN Reason Stop Dose Admin Acetaminophen 1,000 mg 01/28/19 19:18 01/28/19 19:22 Tylenol Extra Strength PO 01/28/19 19:19 1,000 mg ONETIME ONE Administration Ferric Sodium Gluconate 140 mls @ 50 mls/hr 01/28/19 18:06 01/28/19 19:08 Complex 500 mg/ Sodium IV 01/28/19 20:29 50 mls/hr Chloride ONETIME ONE Administration Oxycodone/Acetaminophen 1 tab 01/28/19 18:43 Percocet 325-5 Mg PO 01/28/19 18:44 ONETIME ONE - Re-Assessments/Exams Free Text/Narrative Re-Assessment/Exam: 01/28/19 18:28 PT WAS FOUND TO HAVE A SERUM FERRITIN OF 24. hIS FIRST BPS WERE QUITE LOW AND HE APPEARS TO BE QUITE DRY. hE HAD A NORMAL EKG. pT WAS GIVEN 500MG OF IRON INFUSION. hE WILL ALSO BE GIVEN A LITER OF FLUID. Departure - Departure Disposition: Home, Self-Care 01 Clinical Impression: Syncope Qualifiers: Syncope type: unspecified Qualified Code(s): R55 - Syncope and collapse Instructions: Syncope, [id number] Referrals: PCP,None [Primary Care Provider] - Forms: ED Department Discharge Additional Instructions: Continue your current medications. Follow up with your primary care provider to discuss today' events and to make a plan for how to prevent future occurrences. Return here as needed. <Huan Whatley - Last Filed: 01/28/19 21:34> Departure - Departure Time of Disposition: 22:00 Condition: Fair
[2019-01-28] MEDS ORDERED: SODIUM FERRIC GLUCONATE CMPLEX IV ONE (18:06)
[2019-01-28] MEDS ORDERED: SODIUM CHLORIDE 0.9% IV ONE (18:06)
[2019-01-28] MEDS ORDERED: Acetaminophen/oxyCODONE 325-5 MG Tab PO ONE (18:43)
[2019-01-28] MEDS ORDERED: Acetaminophen 500 MG Tab PO ONE (19:18)
[2019-01-28 22:19] VITALS: BP 128/60
== END 2019-01-28 22:15 | disposition home or self-care (01) ==
LOC: JP.ED 16:07
DX: R55 Syncope and collapse (principal); E66.9 Obesity, unspecified; Z87.891 Personal history of nicotine dependence; Z79.899 Other long term (current) drug therapy
CPT/HCPCS: 36415; 80053; 81001; 82728; 83550; 85025; 85610; 93005; A9270; J2916; J7030; 93010; 99284

== ENCOUNTER 2019-02-03 12:14 | Outpatient (CLI) | payer MEDICARE, BC ==
[2019-02-03] MEDS ORDERED: Sodium Chloride 0.9% 10 ML Syringe IV PRN (12:23)
[2019-02-03] MEDS ORDERED: Sodium Ferric Gluconate Cmplex 250 MG in Sodium Chloride 0.9% 100 ML IV ONE (12:30)
[2019-02-03] MEDS ORDERED: Lactated Ringers 1,000 ML IV ONE (12:45)
[2019-02-03] MEDS ORDERED: Lactated Ringers 500 ML IV ONE (13:15)
[2019-02-03 15:26] VITALS: BP 131/61; PULSE 65
== END 2019-02-03 15:20 | disposition home or self-care (01) ==
LOC: JP.ACU 12:14
PROVIDERS: ATTEND Physician Assistant Medical
DX: E61.1 Iron deficiency (principal); E86.0 Dehydration
CPT/HCPCS: J2916; J7030; J7120; 96365; 96366; J7050

== ENCOUNTER 2020-11-10 10:57 | Emergency (ER) | payer MEDICARE, BC ==
[2020-11-10] MEDS ORDERED: HYDROmorphone 0.5 MG/0.5 ML Syringe IVPUSH ONE (11:54)
[2020-11-10] MEDS ORDERED: Sodium Chloride 0.9% 10 ML Syringe FLUSH PRN (11:54)
--- NOTE | 2020-11-10 12:00 | EDM.PDOC ---
ED HPI GENERAL MEDICAL PROBLEM - General Chief Complaint: Abdominal Pain Stated Complaint: BLOODY STOOL Time Seen by Provider: 11/10/20 11:45 Source of Information: Reports: Patient, Old Records, RN History Limitations: Reports: No Limitations - History of Present Illness INITIAL COMMENTS - FREE TEXT/NARRATIVE: 65 yo male with a pHx of multiple abdominal surgeries presents with loose stools since yesterday and progressively darker stools over the past 3 days that he now describes as black. No fever. He says his pain is not severe and is mid abdominal in location. He is not aware of having diverticulosis. He is here with his . He did talk with Dr. Blake before being told to come to the ER. He is on warfarin. Last colonoscopy was in , report does not mention divert iculosis. Takes iron so his stools are normally dark. Onset: Gradual Onset Date: 11/07/20 Duration: Day(s):, Getting Worse Location: Reports: Abdomen Quality: Reports: Ache Severity: Mild Improves with: Reports: None Worsens with: Reports: Other (? time) Context: Reports: Other (See HPI) Associated Symptoms: Reports: Other (loose stools). Denies: Fever/Chills, Nausea/Vomiting Treatments HEAD PUMPER: Reports: Other (see below) (none) Abdominal Pain Score (Numeric/FACES): 8 - Related Data Allergies Allergy/AdvReac Type Severity Reaction Status Date / Time hydrocodone Allergy Itching Verified 11/10/20 12:59 Home Meds: Home Meds Warfarin Sodium [Jantoven] 2.5 mg PO SUTUTHSA 10/11/15 [History] Magnesium Oxide 800 mg PO BID 01/13/17 [History] Pantoprazole [Protonix] 40 mg PO DAILY 01/13/17 [History] Cyanocobalamin (Vitamin B12) [Vitamin B12] 1,000 mcg SL BID 04/04/17 [History] Folic Acid 1 mg PO DAILY 04/04/17 [History] Lactobacillus Acidophilus [Probiotic Acidophilus] 1 each PO DAILY 04/04/17 [History] Tamsulosin [Tamsulosin 24 Hr] 0.4 mg PO DAILY 04/04/17 [History] Amylase/Lipase/Protease [[place] 24,000 Unit] 1 tab PO BID 01/28/19 [History] Acetaminophen/HYDROcodone [[place] 325-10 MG] 1 tab PO Q6H PRN 02/03/19 [History] Sodium Bicarbonate 650 mg PO DAILY 02/03/19 [History] Warfarin [Coumadin] 3.75 mg PO MOWEFR 02/03/19 [History] Acetaminophen/HYDROcodone [[place] 325-5 MG] 1 tab PO Q4H PRN #14 tab 11/10/20 [Rx] Amylase/Lipase/Protease [Marin DR 24,000 Unit] 1 cap PO DAILY 11/10/20 [History] Iron,Carbonyl [Iron Chews] 45 mg PO DAILY 11/10/20 [History] Past Medical History HEENT History: Reports: Cataract Cardiovascular History: Reports: Blood Clots/VTE/DVT Gastrointestinal History: Reports: Chronic Diarrhea, Hemorrhoids, PUD, Other (See Below) Other Gastrointestinal History: incisional hernia Musculoskeletal History: Reports: Arthritis, Back Pain, Chronic, Other (See Below) Other Musculoskeletal History: cyst lt wrist, left shoulder pain Neurological History: Reports: Concussion Endocrine/Metabolic History: Reports: Obesity/BMI 30+ Hematologic History: Reports: Anemia, Anticoagulation Therapy, B12 Deficiency, Blood Transfusion(s), Folic Acid, Iron Deficiency - Infectious Disease History Infectious Disease History: Reports: Chicken Pox, Measles Other Infectious Disease History: unknown - Past Surgical History HEENT Surgical History: Reports: Cataract Surgery Cardiovascular Surgical History: Reports: None GI Surgical History: Reports: Cholecystectomy, Colonoscopy, Hernia, Abdominal, Lysis of Adhesions, Small Bowel, Other (See Below) Other GI Surgeries/Procedures: bleeding ulcer-clips placed. bowel resection r/t blood clot; bowel resection r/t adhesions; bowel resection r/t feces in BRAXTON tubes Neurological Surgical History: Reports: Discectomy, Other (See Below) Other Neurological Surgeries/Procedures: 3 ruptured disc repair Musculoskeletal Surgical History: Reports: Shoulder Surgery, Other (See Below) Other Musculoskeletal Surgeries/Procedures:: rotator cuff repair Dermatological Surgical History: Reports: None Social & Family History - Family History Oncologic: Reports: Liver, Pancreatic, Prostate, Other (See Below) Other Oncologic Family History: stomach - Tobacco Use Tobacco Use Status *Q: Former Tobacco User Used Tobacco, but Quit: Yes Month/Year Tobacco Last Used: 09/1990 - Caffeine Use Caffeine Use: Reports: Coffee - Recreational Drug Use Recreational Drug Use: No ED ROS GENERAL - Review of Systems Review Of Systems: See Below Constitutional: Reports: No Symptoms HEENT: Reports: No Symptoms Respiratory: Reports: No Symptoms Cardiovascular: Reports: No Symptoms GI/Abdominal: Reports: Abdominal Pain, Black Stool, Diarrhea, Melena. Denies: Constipation, Hematemesis, Nausea, Vomiting : Reports: No Symptoms Musculoskeletal: Reports: No Symptoms Skin: Reports: No Symptoms Neurological: Reports: No Symptoms Psychiatric: Reports: No Symptoms ED EXAM, GI/ABD - Physical Exam Exam: See Below Exam Limited By: No Limitations General Appearance: Alert, WD/WN, No Apparent Distress Eyes: Bilateral: Normal Appearance Ears: Normal External Exam, Normal Canal, Hearing Grossly Normal Nose: Normal Inspection, No Blood Throat/Mouth: Normal Inspection, Normal Lips, Normal Oropharynx, Normal Voice, No Airway Compromise Head: Atraumatic, Normocephalic Neck: Normal Inspection Respiratory/Chest: No Respiratory Distress, Lungs Clear, Normal Breath Sounds, No Accessory Muscle Use Cardiovascular: Regular Rate, Rhythm, No Edema GI/Abdominal Exam: Normal Bowel Sounds, Soft, No Distention, Tender (mild mid to mid L lateral). No: Non-Tender, Distended, Guarding, Rigid, Rebound, Abnormal Bowel Sounds Back Exam: Normal Inspection. No: CVA Tenderness (R), CVA Tenderness (L) Extremities: Normal Inspection, Normal Range of Motion, Non-Tender, No Pedal Edema Neurological: Alert, Oriented, CN II-XII Intact, Normal Cognition, No Motor/ Sensory Deficits Psychiatric: Normal Affect, Normal Mood Skin Exam: Warm, Dry, Intact, Normal Color, No Rash Course - Vital Signs Text/Narrative:: Dr. Cuong Blake called @ 1415h Last Recorded V/S: Last Vital Signs Temp 36.9 C 11/10/20 11:15 Pulse 101 H 11/10/20 12:41 Resp 16 11/10/20 12:41 BP 127/75 11/10/20 12:41 Pulse Ox 95 11/10/20 12:41 - Orders/Labs/Meds Orders: Active Orders 24 hr Category Date Time Status CRP [C-REACTIVE PROTEIN] [CHEM] Stat Lab 11/10/20 14:18 Ordered Sodium Chloride 0.9% [Saline Flush] Med 11/10/20 11:54 Active 10 ml FLUSH ASDIRECTED PRN Saline Lock Insert [OM.PC] Routine Oth 11/10/20 11:54 Ordered Medication Orders Sodium Chloride (Saline Flush) 10 ml FLUSH ASDIRECTED PRN PRN Reason: Keep Vein Open Last Admin: 11/10/20 12:02 Dose: 10 ml Documented by: PREILOR Labs: Laboratory Tests 11/10/20 11/10/20 11/10/20 Range/Units 11:42 11:42 11:54 WBC 5.9 (4.5-11.0) K/uL RBC 5.65 (4.30-5.90) M/uL Hgb 16.5 H D (12.0-15.0) g/dL Hct 53.2 (40.0-54.0) % MCV 94 (80-98) fL MCH 29 (27-31) pg MCHC 31 L (32-36) % Plt Count 214 (150-400) K/uL PT 32.2 H (9.5-12.0) sec INR 3.02 H (0.80-1.20) Sodium 143 (140-148) mmol/L Potassium 4.8 (3.6-5.2) mmol/L Chloride 107 (100-108) mmol/L Carbon Dioxide 25 (21-32) mmol/L Anion Gap 11.4 (5.0-14.0) mmol/L BUN 29 H (7-18) mg/dL Creatinine 1.3 (0.8-1.3) mg/dL Est Cr Clr Drug Dosing 55.14 mL/min Estimated GFR (MDRD) 55 L (>60) Glucose 99 (74-106) mg/dL Calcium 8.8 (8.5-10.1) mg/dL Meds: Medications Generic Name Dose Route Start Last Admin Trade Name Freq PRN Reason Stop Dose Admin Sodium Chloride 10 ml 11/10/20 11:54 11/10/20 12:02 Saline Flush FLUSH 10 ml ASDIRECTED PRN Administration Keep Vein Open Discontinued Medications Generic Name Dose Route Start Last Admin Trade Name Freq PRN Reason Stop Dose Admin Acetaminophen 1,000 mg 11/10/20 14:13 Tylenol Extra Strength PO 11/10/20 14:14 ONETIME ONE Hydromorphone HCl 0.5 mg 11/10/20 11:54 11/10/20 11:59 Dilaudid IVPUSH 11/10/20 11:55 0.5 mg ONETIME ONE Administration Lactated Ringer's 1,000 mls @ 1,000 mls/hr 11/10/20 12:34 11/10/20 12:54 Ringers, Lactated IV 11/10/20 13:33 1,000 mls/hr BOLUS ONE Administration - Radiology Interpretation Free Text/Narrative:: single view abdominal X-ray-neg Departure - Departure Time of Disposition: 14:25 Disposition: Home, Self-Care 01 Condition: Fair Clinical Impression: Nonspecific abdominal pain - Discharge Information *PRESCRIPTION DRUG MONITORING PROGRAM REVIEWED*: No *COPY OF PRESCRIPTION DRUG MONITORING REPORT IN PATIENT LEESA: No Prescriptions: Acetaminophen/HYDROcodone [[place] 325-5 MG] 1 tab PO Q4H PRN #14 tab PRN Reason: Pain Referrals: Rupa bAad MD [Primary Care Provider] - Forms: ED Department Discharge Additional Instructions: Use [place] OR acetaminophen as needed for pain relief. If your pain is not gone by Friday give Dr. Blake a call. Return as needed. Sepsis Event Note (ED) - Evaluation Sepsis Screening Result: No Definite Risk - Focused Exam Vital Signs: Vital Signs Temp Pulse Resp BP Pulse Ox 11/10/20 12:41 101 H 16 127/75 95 11/10/20 11:15 36.9 C 90 20 169/81 H 94 L 11/10/20 11:12 36.9 C 90 20 169/81 H 94 L - My Orders Last 24 Hours: My Active Orders 11/10/20 11:54 Sodium Chloride 0.9% [Saline Flush] 10 ml FLUSH ASDIRECTED PRN Saline Lock Insert [OM.PC] Routine 11/10/20 14:18 CRP [C-REACTIVE PROTEIN] [CHEM] Stat - Assessment/Plan Last 24 Hours: My Active Orders 11/10/20 11:54 Sodium Chloride 0.9% [Saline Flush] 10 ml FLUSH ASDIRECTED PRN Saline Lock Insert [OM.PC] Routine 11/10/20 14:18 CRP [C-REACTIVE PROTEIN] [CHEM] Stat
[2020-11-10] MEDS ORDERED: Lactated Ringers 1,000 ML IV ONE (12:34)
[2020-11-10 12:42] VITALS: BP 127/75; PULSE 101
[2020-11-10] MEDS ORDERED: Acetaminophen 500 MG Tab PO ONE (14:13)
--- NOTE | 2020-11-10 14:13 | CR ---
Abdomen 1V Flat CLINICAL HISTORY: Abdominal pain, diarrhea FINDINGS: Patient has had extensive surgery in the right abdomen. Small intestinal configuration is nonacute. There is gas and feces to the transverse and left colon. Colon contour is normal IMPRESSION: Nonspecific gas pattern
== END 2020-11-10 14:38 | disposition home or self-care (01) ==
LOC: JP.ED 10:57
DX: R10.9 Unspecified abdominal pain (principal); E66.9 Obesity, unspecified; Z68.30 Body mass index [BMI] 30.0-30.9, adult; Z79.01 Long term (current) use of anticoagulants; Z79.899 Other long term (current) drug therapy; Z86.718 Personal history of other venous thrombosis and embolism; Z88.5 Allergy status to narcotic agent; Z87.891 Personal history of nicotine dependence
CPT/HCPCS: 36415; 74018; 80048; 82272; 85027; 85610; 86140; 96374; 99284; A9270; J1170; J7120

== ENCOUNTER 2024-04-21 17:46 | Emergency (ER) | payer MEDICARE, BC ==
[2024-04-21 18:48] VITALS: BP 161/81; PULSE 100
[2024-04-21 18:51] LABS: BASOPHILS PERCENT AUTO 0.5 % (0.1-1.3); HEMOGLOBIN 12.4 g/dL (12.9-16.9); IMMATURE GRAN PERCENT AUTO 0.5 % (0.0-0.7); LYMPHOCYTES ABSOLUTE AUTO 0.61 K/uL (0.8-3.3); MEAN CORPUSCULAR HEMOGLOBIN 29.5 pg (31.6-35.5); MEAN CORPUSCULAR HGB CONC 33.5 g/dL (31.6-35.5); MEAN CORPUSCULAR VOLUME 87.9 fL (81.4-99.0); MONOCYTES ABSOLUTE AUTO 0.44 K/uL (0.20-0.90); MONOCYTES PERCENT AUTO 10.8 % (3.3-12.6); NEUTROPHILS ABSOLUTE AUTO 2.97 K/uL (1.0-7.6); NEUTROPHILS PERCENT AUTO 73.2 % (40.0-78.1); PLATELET COUNT,PLT 136 K/uL (130-375); RED BLOOD CELL COUNT 4.21 M/uL (4.14-5.76); WHITE BLOOD CELL COUNT,WBC 4.1 K/uL (3.2-11.0)
[2024-04-21 19:03] LABS: BASOPHILS ABSOLUTE AUTO 0.02 K/uL (0.00-0.10); IMMATURE GRAN ABSOLUTE AUTO 0.02 K/uL (0.00-0.23)
[2024-04-21 19:07] LABS: ANION GAP 13.8 mmol/L (5.0-14.0); CALCIUM 8.4 mg/dL (8.5-10.1); CREATININE 1.5 mg/dL (0.8-1.3); EST CRCL DRUG DOSING (CG) 45.82 mL/min; POTASSIUM,K 3.8 mmol/L (3.6-5.2)
[2024-04-21 21:54] LABS: LYME AB IgG Negative (Negative); LYME AB IgM Positive (Negative)
== END 2024-04-21 19:45 | disposition home or self-care (01) ==
LOC: JP.ED 17:46
DX: J40 Bronchitis, not specified as acute or chronic (principal); Z88.5 Allergy status to narcotic agent; Z79.01 Long term (current) use of anticoagulants; Z79.899 Other long term (current) drug therapy; Z90.49 Acquired absence of other specified parts of digestive tract
CPT/HCPCS: 36415; 71046; 71046-26; 80048; 85025; 86617; 86618; 87468; 87469; 87484; 87798; 99283